=== PATIENT | female | born 1960 | race Caucasian/White ===

== ENCOUNTER 2019-04-27 22:28 | Emergency (ER) | payer OTHER ==
--- OUTSIDE RECORDS SUMMARY | 2019-04-27 22:31 | XMS REPORT | Continuity of Care Document ---
:1960 Author Organization [facility] Address [address] [place] [address] Phone Unavailable Care Team Providers Name Role Phone PHYSICIAN, NO Primary Care Physician Unavailable Insurance Providers Guarantor Kvng Rodriges Address [address] [place] [address] Email NA Payer [facility] Other Policy Number [id number] Subscriber's Name Kvng Rodriges Relationship Self / Same As Patient Group Number NA Group Name NA Advance Directives Directive Response Recorded Date/Time Name of Surrogate/Decision Maker NA 12/15/18 4:06pm Patient/Family Given Education Material R/T Directives? Y - VV 12/15/18 4: 06pm Chief Complaint and Reason for Visit Chief Complaint Trauma Reason for Visit Head injury Neck pain Sacral back pain Fall Problems Active ProblemsNo active problem information available. Past Problems Medical Problem Onset Date Status Fall Unknown Acute Head injury Unknown Acute Neck pain Unknown Acute Sacral back pain Unknown Acute Medications Current Home Medications Medication Dose Units Route Directions Days Qty Instructions Start Date Baclofen 1 Tab ORAL Three Times A 5 Days 15 Tablet 12/15/18 (Lioresal*) 10 Day for Mg Tab Unknown Social History Smoking Status Start Date Stop Date Current some day smoker Hospital Discharge Instructions No hospital discharge instruction information available. Plan of Care Discharge Date 12/15/18 4:00pm Instructions/Education Provided Head Injury, Adult, [id number] Low Back Strain Fall Prevention in the Home Forms Provided Portal Welcome Letter Prescriptions See Medication Section Referrals NO PHYSICIAN Additional Instructions/Education CONTINUE WITH HOME MEDICATIONS PRESCRIBED BACLOFEN 10MG TAB 1 BY MOUTH TID #15. FOLLOW UP WITH YOUR PRIMARY CARE PROVIDER IN 2-3 DAYS RETURN TO THE ER IF YOUR SYMPTOMS WORSEN Functional Status No functional status information available. Allergies, Adverse Reactions, Alerts Allergen Type Severity Reaction Status Last Updated Codeine ([id number]) Allergy Unknown HIVES Active 12/15/18 Morphine ([id number]) Allergy Unknown RASH Active 12/15/18 Gabapentin ([id number]) Allergy Unknown PASSES OUT Active 12/15/18 Sulfa Antibiotics ([id number]) Allergy Unknown THROAT SWELLS Active 12/15 Immunizations No immunization information available. Vital Signs Acute Vital Signs Vital Response Date/Time Blood Pressure 144/68 mm Hg 12/15/2018 5:56pm Pulse Pulse Rate (adult) 75 beats per minute (60 - 100) 12/15/2018 5:56pm Respiratory Rate 16 breaths per minute (10 - 24) 12/15/2018 5:56pm Temperature Source Oral 12/15/2018 3:21pm Height 5 ft 6 in 12/15/2018 1:24pm Weight 230 lb 12/15/2018 1:24pm Body Mass Index 37.1 kg/m^2 12/15/2018 1:24pm Results No relevant diagnostic test, laboratory data and/or discharge summary information available. Procedures Procedure Status Date Provider(s) Computed tomography of head without contrast Completed 12/15/18 JACKIE GARIBAY MD Computed tomography of cervical spine without Completed 12/15/18 [facility] DENTIST contrast X-ray of lumbar spine, AP and lateral views Completed 12/15/18 GRANT SHETH ENDODONTICS DENTIST X-ray of sacrum and coccyx, two or more views Completed 12/15/18 GRANT SHETH NP Encounters Encounter Location Arrival/Admit Date Discharge/Depart Date Attending Provider Departed [place] 12/15/18 1:23pm 12/15/18 4:00pm JACKIE GARIBAY MD Emergency Room [facility] Recent Diagnosis
--- OUTSIDE RECORDS SUMMARY | 2019-04-27 22:31 | XMS REPORT | Clinical Summary ---
:1960 Author Organization [facility] Address [address] [place] [address] Care Team Providers Name Role Phone Hannah Phoenix MD Primary Care Provider Allergies Active Allergy Reactions Severity Noted Date Comments Codeine Hives 04/17/2017 Gabapentin Other (See Comments) 04/17/2017 Passes out Morphine Swelling 04/17/2017 Sulfa (Sulfonamide Antibiotics) Anaphylaxis High 04/15/2016 Sulfur Swelling 04/17/2017 Medications Medication Sig Dispensed Refills Start Date End Date Status ACCU-CHEK COMPACT USE 1 STRIP 3 2 02/18/2017 Active TEST strip TIMES A DAY busPIRone (BUSPAR) 10 TAKE 1/2 TAB BY 0 10/10/2018 Active MG tablet MOUTH TWICE A DAY, IF TOLERATING INCREASE TO 1 BY MOUTH TWICE A DAY AFTER 1-2 WEEKS clonAZEPAM (KlonoPIN) TAKE 1 TABLET 0 10/09/2018 Active 1 MG tablet TWICE A DAY NEEDED ANXIETY/PANIC promethazine 0 10/31/2018 Active (PHENERGAN) 25 MG tablet levocetirizine Take 5 mg by 5 10/10/2018 Active (XYZAL) 5 MG tablet mouth daily. VICTOZA 3-MG 0.6 INJECT 1.8 MG 5 09/19/2018 Active mg/0.1 mL (18 mg/3 SUB-Q DAILY mL) pen injector metFORMIN Take 1,000 mg by 5 10/12/2018 Active (GLUCOPHAGE) 1,000 mg mouth 2 (two) tablet times a day. rizatriptan (MAXALT) TAKE 1 TABLET BY 5 10/11/2018 Active 10 MG tablet MOUTH AT ON SET OF HEADACHE MAY REPEAT AFTER 2 HOURS MAX 2 TABLETS IN 24 HOURS. rOPINIRole (REQUIP) 4 Take 4 mg by 0 09/29/2018 Active MG tablet mouth 2 (two) times a day. acyclovir (ZOVIRAX) 0 10/31/2018 Active 800 MG tablet PROAIR HFA 90 INHALE 2 PUFFS 2 09/15/2018 Active mcg/actuation inhaler BY MOUTH THREE TIMES DAILY LANTUS SOLOSTAR U-100 INJECT 50 UNITS 0 08/28/2018 Active INSULIN 100 unit/mL SUB-Q IN THE injection (pen) MORNING AND 20 UNITS AT BEDTIME DIRECTED montelukast Take 10 mg by 5 10/12/2018 Active (SINGULAIR) 10 mg mouth daily. tablet gemfibrozil (LOPID) 0 10/31/2018 Active 600 MG tablet furosemide (LASIX) 40 Take 40 mg by 5 10/12/2018 Active mg tablet mouth daily. buPROPion XL GIVE 3 TABLETS 0 08/30/2018 Active (WELLBUTRIN XL) 150 BY MOUTH EVERY MG 24 hr tablet MORNING ibuprofen Take 800 mg by 5 10/12/2018 Active (ADVIL,MOTRIN) 800 MG mouth 2 (two) tablet times a day. oxyCODone-acetaminoph TAKE 1 TABLET BY 0 10/13/2018 Active en (PERCOCET) 10-325 MOUTH SIX TIMES mg per tablet DAILY EVZIO 2 mg/0.4 mL 2 07/29/2018 Active auto-injector clopidogrel (PLAVIX) 0 10/31/2018 Active 75 mg tablet omeprazole (PriLOSEC) Take 40 mg by 0 09/17/2018 Active 40 MG capsule mouth daily. sertraline (ZOLOFT) TAKE 1 TABLET IN 0 09/28/2018 Active 50 MG tablet THE MORNING AND AT BEDTIME baclofen (LIORESAL) 0 10/31/2018 Active 20 MG tablet fluticasone-salmetero Inhale 1 puff 2 60 each 2 11/02/2018 12/02/2018 l (ADVAIR DISKUS) (two) times a 250-50 mcg/dose day for 30 days. DISKUS predniSONE Take 3 tablets 9 tablet 0 11/03/2018 11/06/2018 (DELTASONE) 20 mg (60 mg total) by tablet mouth daily for 3 days. azithromycin Take first 2 6 tablet 0 11/02/2018 11/06/2018 (ZITHROMAX) 250 MG tablets tablet together, then 1 every day until finished. benzonatate Take 1 capsule 21 capsule 0 01/25/2019 02/01/2019 (TESSALON) 100 MG (100 mg total) capsule by mouth 3 (three) times a day as needed for cough for up to 7 days. albuterol (PROAIR Inhale 2 puffs 1 Inhaler 0 01/25/2019 02/24/2019 HFA,PROVENTIL every 6 (six) HFA,VENTOLIN HFA) 90 hours as needed mcg/actuation inhaler for wheezing or shortness of breath for up to 30 days. Active Problems Not on file Encounters Date Type Specialty Care Team Description 03/05/2019 Emergency Emergency Medicine Dileep Hooper Bursitis of right MD Donnell elbow, unspecified bursa (Primary Dx) 02/12/2019 Emergency Emergency Medicine Julieth Gonzalez Chest heaviness Devi Jacobo MD (Primary Dx) 01/25/2019 Emergency Emergency Medicine Bulmaro Arguello Acute bronchitisDawson MD unspecified organism (Primary Dx) 11/02/2018 Emergency Emergency Medicine Julien Ivy MD COPD exacerbation (HCC) (Primary Dx) 11/02/2018 Travel after 04/26/2018 Social History Tobacco Use Types Packs/Day Years Used Date Former Smoker 1 Quit: 10/26/2018 Smokeless Tobacco: Never Used Alcohol Use Drinks/Week oz/Week Comments Yes occassional Sex Assigned at Date Recorded Not on file Job Start Date Occupation Industry Not on file Not on file Not on file Travel History Travel Start Travel End No recent travel history available. Last Filed Vital Signs Vital Sign Reading Time Taken Blood Pressure 135/71 03/05/2019 4:39 PM CDT Pulse 78 03/05/2019 4:39 PM CDT Temperature 36.4 C (97.6 F) 03/05/2019 4:39 PM CDT Respiratory Rate 18 03/05/2019 4:39 PM CDT Oxygen Saturation 97% 03/05/2019 4:39 PM CDT Inhaled Oxygen Concentration - - Weight 101 kg (223 lb) 03/05/2019 1:40 PM CDT Height 168.9 cm (5' 6.5") 02/12/2019 4:48 PM CDT Body Mass Index 35.45 02/12/2019 4:48 PM CDT Plan of Treatment Health Maintenance Due Date Last Done Comments BREAST CANCER SCREENING 2011 COLONOSCOPY SCREENING 2011 SHINGLES VACCINES (#1) 2011 INFLUENZA VACCINE 05/24/2019 Procedures Procedure Name Priority Date/Time Associated Comments Diagnosis XR ELBOW 2 VW RIGHT STAT 03/05/2019 4:15 Results for this PM CDT procedure are in the results section. TROPONIN Timed 02/12/2019 8:10 Results for this PM CDT procedure are in the results section. US DUPLEX VENOUS LOWER STAT 02/12/2019 8:09 Results for this EXTREMITY LEFT PM CDT procedure are in the results section. CT HEAD WO CONTRAST STAT 02/12/2019 7:28 Results for this PM CDT procedure are in the results section. XR CHEST 2 VW STAT 02/12/2019 7:25 Results for this PM CDT procedure are in the results section. ECG ED PRELIMINARY Routine 02/12/2019 6:55 Results for this INTERPRETATION PM CDT procedure are in the results section. ESTIMATED GFR STAT 02/12/2019 5:15 Results for this PM CDT procedure are in the results section. B NATRIURETIC PEPTIDE STAT 02/12/2019 5:15 Results for this PM CDT procedure are in the results section. TROPONIN STAT 02/12/2019 5:15 Results for this PM CDT procedure are in the results section. COMPREHENSIVE METABOLIC STAT 02/12/2019 5:15 Results for this PANEL PM CDT procedure are in the results section. HC COMPLETE BLD COUNT STAT 02/12/2019 5:15 Results for this W/AUTO DIFF PM CDT procedure are in the results section. ECG 12-LEAD STAT 02/12/2019 4:55 Results for this PM CDT procedure are in the results section. RESPIRATORY PATHOGEN Routine 01/25/2019 7:08 Results for this PANEL PM CDT procedure are in the results section. INFLUENZA ANTIGEN TEST, Routine 01/25/2019 7:08 Results for this REFLEX NEGATIVE TO RPP PM CDT procedure are in the results section. ECG 12-LEAD STAT 01/25/2019 6:58 Results for this PM CDT procedure are in the results section. TROPONIN Timed 01/25/2019 5:33 Results for this PM CDT procedure are in the results section. B NATRIURETIC PEPTIDE STAT 01/25/2019 5:33 Results for this PM CDT procedure are in the results section. ESTIMATED GFR STAT 01/25/2019 5:33 Results for this PM CDT procedure are in the results section. COMPREHENSIVE METABOLIC STAT 01/25/2019 5:33 Results for this PANEL PM CDT procedure are in the results section. HC COMPLETE BLD COUNT STAT 01/25/2019 5:33 Results for this W/AUTO DIFF PM CDT procedure are in the results section. XR CHEST 2 VW STAT 01/25/2019 5:20 Results for this PM CDT procedure are in the results section. XR CHEST 2 VW STAT 11/02/2018 9:07 Results for this PM [employer] procedure are in the results section. STREP SCREEN CULTURE Routine 11/02/2018 8:20 Results for this PM [employer] procedure are in the results section. GROUP A STREP, RAPID Routine 11/02/2018 8:20 Results for this ANTIGEN PM [employer] procedure are in the results section. INFLUENZA ANTIGEN Routine 11/02/2018 8:20 Results for this PM [employer] procedure are in the results section. after 04/26/2018 Results XR Elbow 2 Vw Right (03/05/2019 4:15 PM CDT) Specimen Narrative Performed At EXAMINATION:XR ELBOW 2 VW RIGHT [facility] CLINICAL HISTORY:elbow pain COMPARISON:None. IMPRESSION: There is no evidence of acute right elbow fracture, dislocation, or joint effusion. Bursitis involving the olecranon bursa is suggested. [id number] Procedure Note Hm Interface, Radiology Results Incoming - 03/05/2019 4:20 PM CDT EXAMINATION: XR ELBOW 2 VW RIGHT CLINICAL HISTORY: elbow pain COMPARISON: None. IMPRESSION: There is no evidence of acute right elbow fracture, dislocation, or joint effusion. Bursitis involving the olecranon bursa is suggested. [id number] Performing Organization Address City/State/Zipcode Phone Number [facility] [address] [place] [address] Troponin (02/12/2019 8:10 PM CDT)Only the most recent of3 resultswithin the time period is included. Troponin <0.30 0.00 - 0.30 [facility] Comment: ng/mL OSWALD VAHE 0.11 - 1.49 ng/mlMay indicate increased risk of acute HOSPITAL coronary syndrome. >=1.5 ng/mlConsistent with acute myocardial infarction. The diagnostic value of a single normal or non-diagnostic result is questionable.Serial samples at 2-6 hour intervals are required to rule out acute myocardial injury. Specimen Plasma specimen Performing Organization Address City/State/Zipcode Phone Number [facility] [place] DEPARTMENT OF PATHOLOGY AND [address] [place] [address] GENOMIC MEDICINE [facility] [address] [place] [address] Us duplex venous lower extremity (02/12/2019 8:09 PM CDT) Specimen Narrative Performed At EXAMINATION:US DUPLEX VENOUS LOWER EXTREMITY LEFT [facility] CLINICAL HISTORY:LE swelling COMPARISON:None. TECHNIQUE:Grayscale, color Doppler, and spectral waveform analysis of the left lower extremity deep venous system was performed. The common femoral, superficial femoral, proximal deep femoral, greater saphenous, and popliteal veins were evaluated. The calf veins and contralateral right common femoral vein were also evaluated. FINDINGS: The left common femoral, superficial femoral, and popliteal veins are compressible. They demonstrate normal venous waveforms and response to augmentation. There is flow in the visualized calf veins. There is no evidence of a popliteal or Gallego's cyst. The contralateral right common femoral vein is patent. IMPRESSION: No evidence of deep venous thrombosis in visualized veins of the left lower extremity. [id number] Procedure Note Interface, Radiology Results Incoming - 02/12/2019 8:13 PM CDT EXAMINATION: US DUPLEX VENOUS LOWER EXTREMITY LEFT CLINICAL HISTORY: LE swelling COMPARISON: None. TECHNIQUE: Grayscale, color Doppler, and spectral waveform analysis of the left lower extremity deep venous system was performed. The common femoral, superficial femoral, proximal deep femoral, greater saphenous, and popliteal veins were evaluated. The calf veins and contralateral right common femoral vein were also evaluated. FINDINGS: The left common femoral, superficial femoral, and popliteal veins are compressible. They demonstrate normal venous waveforms and response to augmentation. There is flow in the visualized calf veins. There is no evidence of a popliteal or Gallego's cyst. The contralateral right common femoral vein is patent. IMPRESSION: No evidence of deep venous thrombosis in visualized veins of the left lower extremity. [id number] Performing Organization Address City/State/Zipcode Phone Number [facility] [address] [place] [address] CT Head Wo Contrast (02/12/2019 7:28 PM CDT) Specimen Narrative Performed At Procedure:CT HEAD WO CONTRAST [facility] REFERRING PHYSICIAN:JULIETH GONZALEZ HISTORY:syncopeslurred speech (resolved.) COMPARISON: None TECHNIQUE: Axial images were obtained of the head without intravenous contrast. All CT scan performed using radiation dose reduction techniques. Technical factors are evaluated and adjusted to ensure appropriate moderation of exposure. Automated dose management technology is applied to adjust the radiation dose to minimize expose whileachieving a diagnostic quality image. FINDINGS: Koehler-white matter differentiation is maintained. The ventricular system is symmetric and midline. Mild chronic ischemic small vessel white matter disease is seen. There is no evidence of acute hemorrhage. Nointra-axial or extra-axial lesion is seen. The visualized portion of the orbits, paranasal sinuses and mastoid air cells are unremarkable. The calvarium is intact. Scattered atherosclerotic calcifications of the intracranial vessel are noted. IMPRESSION: No CT evidence of acute intracranial abnormality or hemorrhage. [id number] Procedure Note Interface, Radiology Results Incoming - 02/12/2019 7:33 PM CDT Procedure:CT HEAD WO CONTRAST REFERRING PHYSICIAN:JULIETH GONZALEZ HISTORY: syncope slurred speech (resolved.) COMPARISON: None TECHNIQUE: Axial images were obtained of the head without intravenous contrast. All CT scan performed using radiation dose reduction techniques. Technical factors are evaluated and adjusted to ensure appropriate moderation of exposure. Automated dose management technology is applied to adjust the radiation dose to minimize expose while achieving a diagnostic quality image. FINDINGS: Koehler-white matter differentiation is maintained. The ventricular system is symmetric and midline. Mild chronic ischemic small vessel white matter disease is seen. There is no evidence of acute hemorrhage. No intra-axial or extra-axial lesion is seen. The visualized portion of the orbits, paranasal sinuses and mastoid air cells are unremarkable. The calvarium is intact. Scattered atherosclerotic calcifications of the intracranial vessel are noted. IMPRESSION: No CT evidence of acute intracranial abnormality or hemorrhage. [id number] Performing Organization Address City/State/Zipcode Phone Number [facility] [address] [place] [address] XR Chest 2 Vw (02/12/2019 7:25 PM CDT)Only the most recent of3 resultswithin the time period is included. Specimen Narrative Performed At EXAMINATION:XR CHEST 2 VW HM [facility] CLINICAL HISTORY:chest pain COMPARISON:01/25/2019. FINDINGS: Two views of the chest demonstrate normal cardiomediastinal silhouette. Pulmonary vasculature is within normal limits. Both lungs are clear. No pleural disease is identified. Regional osseous structures is unremarkable. IMPRESSION: No radiographic evidence of acute cardiopulmonary process or active disease of the chest. [id number] Procedure Note Hm Interface, Radiology Results Incoming - 02/12/2019 7:32 PM CDT EXAMINATION: XR CHEST 2 VW CLINICAL HISTORY: chest pain COMPARISON: 01/25/2019. FINDINGS: Two views of the chest demonstrate normal cardiomediastinal silhouette. Pulmonary vasculature is within normal limits. Both lungs are clear. No pleural disease is identified. Regional osseous structures is unremarkable. IMPRESSION: No radiographic evidence of acute cardiopulmonary process or active disease of the chest. [id number] Performing Organization Address City/State/Zipcode Phone Number [facility] [address] [place] [address] ECG ED Preliminary Interpretation - Not an Order (02/12/2019 6:55 PM CDT) Narrative Performed At Julieth Gonzalez Jr., MD 02/13/20194:41 AM ECG ED Preliminary Interpretation - Not an Order Performed by: Julieth Gonzalez Jr., MD Authorized by: Julieth Gonzalez Jr., MD ECG reviewed by ED Physician in the absence of a interior design assistant: yes Interpretation: Interpretation: normal Rate: ECG rate:93 ECG rate assessment: normal Rhythm: Rhythm: sinus rhythm Ectopy: Ectopy: none QRS: QRS axis:Normal QRS intervals:Normal Conduction: Conduction: normal ST segments: ST segments:Normal T waves: T waves: normal Estimated GFR (02/12/2019 5:15 PM CDT)Only the most recent of2 resultswithin the time period is included. Estimated GFR >=90 mL/min/1.73 [facility] Comment: m2 [facility] G1 >=90 Normal or high G2 60-89Mildly decreased [id number] to moderately decreased [id number] to severely decreased G4 15-29Severely decreased G5 <15Kidney failure The eGFR was calculated using the Chronic Kidney Disease Epidemiology Collaboration (CKD-EPI) equation. Interpretation is based on recommendations of the National Kidney Foundation-Kidney Disease Outcomes Quality Initiative (NKF-KDOQI) published in 2014. Specimen Plasma specimen Performing Organization Address City/State/Zipcode Phone Number [facility] DEPARTMENT OF PATHOLOGY AND [address] [place] [address] GENOMIC MEDICINE [facility] [address] [place] [address] CBC with platelet and differential (02/12/2019 5:15 PM CDT)Only the most recent of2 resultswithin the time period is included. WBC 7.6 4.2 - 11.0 k/uL [facility] RBC 4.70 4.04 - 5.86 [facility] m/uL [facility] HGB 12.6 11.5 - 15.3 [facility] g/dL [facility] HCT 41.0 34.0 - 45.0 % [facility] MCV 87.2 80.0 - 98.0 fL [facility] MCH 26.8 (L) 27.0 - 34.0 pg [facility] MCHC 30.7 (L) 31.5 - 36.5 [facility] g/dL [facility] RDW - SD 47.8 37.0 - 51.0 fL [facility] MPV 9.8 7.4 - 10.4 fL [facility] Platelet count 298 150 - 400 k/uL [facility] Nucleated RBC 0.00 /100 WBC [facility] Neutrophils 63.4 36.0 - 66.0 % [facility] Lymphocytes 28.5 24.0 - 44.0 % [facility] Monocytes 5.1 0.0 - 6.0 % [facility] Eosinophils 2.4 0.0 - 6.0 % [facility] Basophils 0.5 0.0 - 1.2 % [facility] Immature granulocytes 0.1 0.0 - 1.0 % [facility] Specimen Blood Performing Organization Address City/State/Zipcode Phone Number [facility] [place] DEPARTMENT OF PATHOLOGY AND [address] [place], [place] [phone] [place] [address] [address] [place] [address] B natriuretic peptide (02/12/2019 5:15 PM CDT)Only the most recent of2 resultswithin the time period is included. [facility] BNP 45 0 - 100 pg/mL [facility] Specimen Blood Performing Organization Address City/[facility]/Zipcode Phone Number [facility] DEPARTMENT OF PATHOLOGY AND [address] [place], [place] [id number] [place] [address] [address] [place] [address] Comprehensive metabolic panel (02/12/2019 5:15 PM CDT)Only the most recent of2 resultswithin the time period is included. [facility] Sodium 140 135 - 150 mEq/L [facility] Potassium 4.3 3.5 - 5.0 mEq/L [facility] Chloride 96 (L) 98 - 112 mEq/L [facility] CO2 29 24 - 31 mmol/L [facility] Anion gap 15@ANIO 7 - 15 mEq/L [facility] BUN 17 7 - 18 mg/dL [facility] Creatinine 0.60 0.50 - 0.90 [facility] mg/dL [facility] Glucose 195 (H) 65 - 100 mg/dL [facility] Calcium 10.1 8.3 - 10.2 mg/dL [facility] Protein 7.6 6.3 - 8.3 g/dL [facility] Albumin 3.4 (L) 3.5 - 5.0 g/dL [facility] A/G ratio 0.8 0.7 - 3.8 [facility] Alkaline phosphatase 112 (H) 0 - 104 U/L [facility] AST 13 10 - 35 U/L [facility] ALT 10 5 - 50 U/L [facility] Total bilirubin <0.3 0.2 - 1.2 mg/dL [facility] Specimen Plasma specimen Performing Organization Address City/State/[facility] Phone Number [facility] DEPARTMENT OF PATHOLOGY AND [address] [place] [address] GENOMIC MEDICINE [facility] [address] [facility] [place] [address] ECG 12 lead (02/12/2019 4:55 PM CDT)Only the most recent of2 resultswithin the time period is included. Ventricular rate 93 [facility] Atrial rate 93 [facility] VT interval 146 [facility] QRSD interval 86 [facility] QT interval 382 [facility] QTC interval 474 [facility] P axis 1 33 [facility] QRS axis 1 46 [facility] T wave axis 18 [facility] EKG impression Normal sinus rhythm-Low [facility] voltage QRS-Borderline ECG-In automated comparison with ECG of 25-JAN-2019 18:58,-Nonspecific T wave abnormality now evident in Inferior leads- Specimen Narrative Performed At Performing Organization Address City/[facility]/Zipcode Phone Number [facility] [address] [place] [address] Respiratory pathogen panel (01/25/2019 7:08 PM CDT) Respiratory Positive for Rhinovirus/Enterovirus [facility] pathogen panel [facility] Negative for all other pathogens tested: HOSPITAL Negative for Adenovirus Negative for Coronavirus HKU1 Negative for Coronavirus NL63 Negative for Coronavirus 229E Negative for Coronavirus OC43 Negative for Human Metapneumovirus Negative for Influenza A Negative for Influenza A/H1 Negative for Influenza A/H3 Negative for Influenza A/H1-2009 Negative for Influenza B Negative for Parainfluenza Virus 1 Negative for Parainfluenza Virus 2 Negative for Parainfluenza Virus 3 Negative for Parainfluenza Virus 4 Negative for Respiratory Syncytial Virus Negative for Bordetella pertussis Negative for Chlamydophila pneumoniae Negative for Mycoplasma pneumoniae This real-time PCR assay detects the presence of nucleic acids (RNA or DNA) for the respiratory pathogens listed. A result of "Not-detected" does not exclude the possibility of the presence of one or more pathogens at concentrations less than the detectable limits of the assa (A) Comment: Specimen Information Specimen Source: Nares Specimen Site: Right Specimen Nares - Right Performing Organization Address City/[facility]/Zipcode Phone Number [place] DEPARTMENT OF PATHOLOGY AND [address] [place] [address] [facility] [address] [place] [address] Influenza antigen test, reflex negative to RPP (01/25/2019 7:08 PM CDT) Influenza antigen Negative for Influenza A/B antigen. [facility] Comment: [facility] Specimen Source: Nares Specimen Site: Right Specimen Nares - Right Performing Organization Address [facility] Phone Number [facility] DEPARTMENT OF PATHOLOGY AND [address] [place] [address] [facility] [address] [place] [address] Group A strep, rapid antigen (11/02/2018 8:20 PM [employer]) Group A strep, Negative for Group A Streptococcus antigen. [facility] rapid antigen Comment: [facility] Specimen Information [facility] Specimen Source: Throat Specimen Site: Not otherwise specified Specimen Throat - Not otherwise specified Performing Organization Address City/[facility] Phone Number DEPARTMENT OF PATHOLOGY AND [address] [place] [address] [facility] [address] Influenza antigen (11/02/2018 8:20 PM [employer]) Influenza antigen Negative for Influenza A/B antigen. [facility] Comment: [facility] Specimen Information [facility] Specimen Source: Nares Specimen Site: Right Specimen Nares - Right Performing Organization Address City/[facility]/Zipcode Phone Number DEPARTMENT OF PATHOLOGY AND [address] [place] [address] [facility] [address] Strep screen culture (11/02/2018 8:20 PM BR[employer] FIN[employer]ER) Strep screen No beta hemolytic Streptococci isolated [facility] culture isolate Comment: HOSPITAL Specimen Information Specimen Source: Throat Specimen Site: Not otherwise specified Specimen Throat - Not otherwise specified Performing Organization Address City/State/Zipcode Phone Number [place] DEPARTMENT OF PATHOLOGY AND [address] [place] [address] GENOMIC MEDICINE [address] [address] after 04/26/2018 Advance Directives Patient has advance care planning documents on file. For more information, please contact:[address] [address]
--- OUTSIDE RECORDS SUMMARY | 2019-04-27 22:31 | XMS REPORT | Continuity of Care Document ---
:1960 Author Organization [facility] Information Ramer Care Team Providers Name Role Phone [facility] Unavailable Unavailable Problems Problem Status Onset Classification Date Comments Source Date Reported Fall Resolved Problem 12/15/2018 [facility] Head injury Resolved Problem 12/15/2018 [facility] Neck pain Resolved Problem 12/15/2018 [facility] Sacral back Resolved Problem 12/15/2018 [facility] Medications Medication Details Route Status Patient Ordering Order Source Instructions Provider Date Baclofen Three ORAL Active Brown 12/15/19 [facility] (Lioresal*) Times A 19 [facility] 10 Mg Tab Day for Medical [facility] Allergies, Adverse Reactions, Alerts Substance Category Reaction Severity Reaction Status Date Comments Source type Reported Codeine HIVES Unknown Allergy to Active [facility] ([id number]) [address] Morphine RASH Unknown Allergy to Active [facility] ([id number]) [address] Gabapentin PASSES Unknown Allergy to Active [facility] ([id number]) OUT [address] Sulfa THROAT Unknown Allergy to Active [facility] Antibiotics SWELLS [address] ([id number]) [facility] Immunizations No Data Provided for This Section Results No Data Provided for This Section Pathology Reports No Data Provided for This Section Diagnostic Reports No Data Provided for This Section Consultation Notes No Data Provided for This Section Discharge Summaries No Data Provided for This Section History and Physicals No Data Provided for This Section Vital Signs No Data Provided for This Section Encounters Location Location Encounter Encounter Reason Attending ADM DC Status Source Details Type Number For Provider Date Date Visit Departed [id number] TOKS OWO 12/15 12/15 [facility] MD /2018 [facility] Room [facility] Procedures Procedure Code Date Perfomer Comments Source Computed [id number] O[facility] tomography of 9 [facility] head without Medical Center contrast [facility]ed [id number] [facility] cervical spine [facility] without contrast X-ray of lumbar [id number] [facility] spine, AP and 9 [facility] lateral [facility] sacrum [id number] [facility] and coccyx, two 9 [facility] or more views Medical [place] Assessment and Plan No Data Provided for This Section Plan of Care Plan of Care Date Source Discharge Date 12/15/18 4:00pm 12/15/2018 [facility] Instructions/Education Provided Head Injury, Adult, [facility] Low Back Strain Fall Prevention in the Home Forms Provided Portal Welcome Letter Prescriptions See Medication Section Referrals NO PHYSICIAN Additional Instructions/Education CONTINUE WITH HOME MEDICATIONS PRESCRIBED BACLOFEN 10MG TAB 1 BY MOUTH TID #15. FOLLOW UP WITH YOUR PRIMARY CARE PROVIDER IN 2-3 DAYS RETURN TO THE ER IF YOUR SYMPTOMS WORSEN Social History Social History Date Source Smoking Status Start Date Stop Date 12/15/2018 [facility] Current some day smoker Center Family History No Data Provided for This Section Advance Directives Order Name Results Value Date Source Advance Directives Advance Directives Directive Response Recorded Date/ Time 12/15/2018 [facility] Name of Surrogate/Decision Maker [facility] 12/15/18 4:06pm Patient/Family Given Education Material R/T Directives? Y - VV 12/15/18 4:06pm Functional Status No Data Provided for This Section
--- OUTSIDE RECORDS SUMMARY | 2019-04-27 22:31 | XMS REPORT ---
:1960 Author Organization [facility] Behavior[facility] Health Address [address] [place] [id number] Phone Allergies, Adverse Reactions, Alerts Allergy Name Reaction Description Start Date Severity Status Provider GABAPENTIN passed out/syncope multiple Severe Active Wellington Ibrahim MD times with it CODEINE hives Moderate Active Wellington Ibrahim MD MORPHINE hives Severe Active [place] Ibrahim MD SULFA rash and throat closing up Severe Active [place] Ibrahim MD Conditions or Problems Problem Name Problem Onset Status Entry Provider Comment Standard Annotate Code Date Date Description Lack of V60.0 Active Iza Lack of housing housing / [facility] Lack of V60.0 Active Iza Lack of housing housing / [facility] Peripheral 356.9 Active Wellington Unspecified neuropathy / Patrice hereditary and idiopathic peripheral neuropathy AGORAPHOBIA Active Wellington Agoraphobia / Patrice without mention MD of panic attacks Degenerative 722.6 Active Wellington Degeneration of disc disease / Patrice intervertebral disc, site unspecified Diabetes 250.00 Active Wellington Diabetes mellitus, type / Patrice mellitus 2 without mention of complication, type II or unspecified type, not stated as uncontrolled Fibromyalgia 729.1 Active Wellington Myalgia and / Patrice myositisMD unspecified GERD 530.81 Active Wellington Esophageal / Patrice reflux LOW INCOME Active Wellington Inadequate / Patrice material resources Migraine 346.90 Active Wellington Migraine, / Patrice unspecified, without mention of intractable migraine, without mention of status migrainosus Obstructive 327.23 Active Wellington Obstructive sleep apnea / Patrice sleep apnea (adult) (pediatric) PANIC DISORDER Active Wellington Panic disorder / Patrice without MD agoraphobia PERSISTENT Active Wellington DEPRESSIVE / Patrice DISORDER, EARLY ONSET, SEVERE PTSD Active Wellington Posttraumatic / Patrice stress disorder TOBACCO USE Active Wellington Tobacco use DISORDER, / Patrice disorder SEVERE MD Medication List Medication Instructions Start Stop Generic NDC Status Provider Patient Date Date Name Instruction NICOTINE 21mg patch NICOTINE 62419170544 Active Wellington Active 21-14-7 to skin Patrice MG/24HR daily for 6 MD TRANSDERMAL weeks, then KIT 14mg patch to skin daily for 2 weeks, then 7mg patch to skin daily for 2 weeks BUPROPION HCL GIVE 3 BUPROPION 47724900894 Active Wellington Active XL 150 MG TABLETS BY HCL Patrice TABLET MOUTH EVERY MD MORNING BUSPIRONE HCL 1 By Mouth BUSPIRONE 19029374886 Active Wellington Active 10 MG TABLET Twice a Day HCL Patrice SERTRALINE HCL TAKE 1 SERTRALINE 40527016050 Active Wellington Active 50 MG TABLET TABLET IN HCL Patrice THE MORNING MD AND AT BEDTIME BACLOFEN 10 MG one tablet BACLOFEN 46363053249 Active Wellington Active ORAL TABLET by BID Patrice SCHEDULED MD for muscle spasm CLOPIDOGREL 1 By Mouth CLOPIDOGREL 56103593077 Active Wellington Active BISULFATE 75 once a day BISULFATE Patrice MG ORAL TABLET FUROSEMIDE 40 1 by mouth FUROSEMIDE 94419997081 Active Wellington Active MG ORAL TABLET every am Patrice MD GEMFIBROZIL 1 By Mouth GEMFIBROZIL 38090430861 Active Wellington Active 600 MG ORAL Twice a Day Patrice TABLET IBUPROFEN 800 1 by mouth IBUPROFEN 81521038652 Active Wellington Active MG ORAL TABLET BID Patrice SCHEDULED LANTUS 100 50 AM and INSULIN 23838260656 Active Wellington Active UNIT/ML 20PM GLARGINE Patrice SUBCUTANEOUS MD SOLUTION MAXALT 5 MG RIZATRIPTAN 30673503970 Active Wellington Active ORAL TABLET BENZOATE Patrice MD METFORMIN HCL 1 by mouth METFORMIN 04482848504 Active Wellington Active 1000 MG ORAL twice a day HCL Patrice TABLET MONTELUKAST MONTELUKAST 89181911233 Active Wellington Active SODIUM 10 MG SODIUM Patrice ORAL TABLET MD OMEPRAZOLE 40 1 By Mouth OMEPRAZOLE 87262775855 Active Wellington Active MG ORAL Every Day Patrice CAPSULE MD DELAYED RELEASE PERCOCET 1 By Mouth OXYCODONE-AC 55987241779 Active Wellington Active 10-325 MG ORAL up to 6 ETAMINOPHEN Patrice TABLET times a day VICTOZA 18 AM LIRAGLUTIDE 54828066540 Active Wellington Active MG/3ML Patrice SUBCUTANEOUS MD SOLUTION PEN-INJECTOR CLONAZEPAM 1 TAKE 1 CLONAZEPAM 36537364007 Active Wellington Active MG TABS TABLET Patrice TWICE DAILY Vital Signs Date Name Value Unit Range Description blood pressure, diastolic 84 mm[Hg] BP wooten blood pressure, systolic 122 mm[Hg] BP sys height E&M 67 [in_us] Bdy height pulse rate E&M 88 /min Heart rate weight E&M 220.40 [lb_av] Weight Measured blood pressure, diastolic 74 mm[Hg] BP wooten blood pressure, systolic 126 mm[Hg] BP sys height E&M 67 [in_us] Bdy height pulse rate E&M 83 /min Heart rate weight E&M 235 [lb_av] Weight Measured blood pressure, diastolic 81 mm[Hg] BP wooten blood pressure, systolic 139 mm[Hg] BP sys height E&M 67 [in_us] Bdy height pulse rate E&M 88 /min Heart rate weight E&M 234.13 [lb_av] Weight Measured blood pressure, diastolic 68 mm[Hg] BP wooten blood pressure, systolic 111 mm[Hg] BP sys height E&M 67 [in_us] Bdy height pulse rate E&M 86 /min Heart rate weight E&M 231 [lb_av] Weight Measured Encounters Date Encounter Provider Code Facility Est Patient Detailed [place] Ibrahim MD [facility][id number] [facility] Behavior[facility] Health 12:10:39 T - [id number] Est Patient Detailed [place] Ibrahim MD [facility]-32189 [facility] Behavior[facility] Health 10:45:44 [employer] - [id number] Est Patient Detailed [place] Ibrahim MD [facility]63419 [facility] 10:23:06 T - 55544 Est Patient Detailed [place] Ibrahim MD [facility]-71998 [facility] 12:17:27 T - 70033 Est Patient Detailed [place] Ibrahim MD [facility]70760 [facility] 10:52:54 T - 43028 Est Patient Detailed [place] Ibrahim MD [facility]-28572 [facility] 11:11:24 [employer] - [id number] Est Patient Detailed [place] Ibrahim MD [facility]-99077 [facility] 11:39:24 [facility] - [id number] Procedures Code Procedure Name Date Entry Date Standard Description [id number] Diagnostic evaluation with medical - 66188 11:12:16 [employer]
--- OUTSIDE RECORDS SUMMARY | 2019-04-27 22:32 | XMS REPORT | Summary of Care ---
:1960 Author Name Shola Mcdonnell Josefa Address Unavailable Unavailable , Care Team Providers Name Role Phone MANUEL Gramajo, SAMANTHA Unavailable Unavailable CICI LANDAVERDE M.D. Unavailable Unavailable RENARD MICHELLE, SONIYA ROGERS Unavailable Unavailable JADEN MICHELLE KS, JOSEPH Veliz Unavailable Unavailable Samantha Pozo MD Unavailable Unavailable Unavailable Unavailable Unavailable Functional Status Name Dates Details Functional status health issues are not documented Status: Name Dates Details Cognitive status health issues are not documented Status: Problems Name Dates Details Diabetes mellitus type 2, uncontrolled (250.02, E11.65) Status: Active Hypertension associated with diabetes (250.80, E11.59) Status: Active Diabetic peripheral neuropathy (250.60, E11.42) Status: Active Dyslipidemia with low high density lipoprotein (HDL) cholesterol with hypertriglyceridemia due to type 2 diabetes mellitus (250.80, E11.69) Status : Active Obesity, Class II, BMI 35-39.9 (278.00, E66.9) Status: Active Osteoporosis (733.00, M81.0) Status: Active 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 Quantity: 30 Refills: 5 Start : 12-Jan-2017 Active Levocetirizine Dihydrochloride 5 MG Oral Tablet TAKE 1 TABLET DAILY. Refills: 0 Start : 12-Jan-2017 Active buPROPion HCl ER (XL) 300 MG Oral Tablet Extended Release 24 Hour TAKE 1 TABLET IN THE MORNING Refills: 0 Start : 12-Jan-2017 Active buPROPion HCl ER (XL) 150 MG Oral Tablet Extended Release 24 Hour Take 1 Tablet in the Evening Refills: 0 Start : 12-Jan-2017 Active Gemfibrozil 600 MG Oral Tablet TAKE 1 TABLET TWICE DAILY Quantity: 180 Refills: 0 Start : 12-Jan-2017 Active metFORMIN HCl - 1000 MG Oral Tablet TAKE 1 TABLET TWICE DAILY Quantity: 180 Refills: 0 Start : 12-Jan-2017 Active Ondansetron HCl - 4 MG Oral Tablet TAKE 1 TABLET TWICE DAILY Refills: 0 Start : 12-Jan-2017 Active rOPINIRole HCl - 4 MG Oral Tablet TAKE 1 TABLET TWICE DAILY Refills: 0 Start : 12-Jan-2017 Active Ibuprofen 800 MG Oral Tablet TAKE 1 TABLET TWICE DAILY Refills: 0 Start : 12-Jan-2017 Active Methocarbamol 750 MG Oral Tablet TAKE 1 TABLET 3 TIMES DAILY. Refills: 0 Start : 12-Jan-2017 Active Singulair 10 MG Oral Tablet TAKE 1 TABLET DAILY Refills: 0 Start : 12-Jan-2017 Active Clopidogrel Bisulfate 75 MG Oral Tablet TAKE 1 TABLET DAILY Refills: 0 Start : 12-Jan-2017 Active Lantus SoloStar 100 UNIT/ML Subcutaneous Solution Pen-injector INJECT 50 UNITS IN THE MORNING AND 20 UNITS IN THE EVENING Refills: 0 Start : 12-Jan-2017 Active Percocet 10-325 MG Oral Tablet TAKE 1 TABLET 6 TIMES DAILY Refills: 0 Start : 12-Jan-2017 Active KlonoPIN 1 MG Oral Tablet Take 1 tablet in the morning and 1.5 tablets in the evening Refills: 0 Start : 12-Jan-2017 Active Phendimetrazine Tartrate 35 MG Oral Tablet TAKE 1 TABLET TWICE DAILY Refills: 0 Start : 12-Jan-2017 Active SSD 1 % External Cream as needed Refills: 0 Start : 12-Jan-2017 Active Systane Ultra 0.4-0.3 % Ophthalmic Solution 1 drop in each eye twice daily Refills: 0 Start : 12-Jan-2017 Active Victoza 18 MG/3ML Subcutaneous Solution Pen-injector INJECT 1.8 UNIT Daily Quantity: 1 Refills: 0 SAMANTHA POZO M.D. Start : 12-Jan-2017 Active 3 x 3 ML Pen BD Ultra-Fine [employer] 31 guage use as directed for insulin pens Quantity: 90 Refills: 3 SAMANTHA POZO M.D. Start : 12-Jan-2017 Active Allergies and Adverse Reactions Name Dates Details Adhesive Bandages MISC (Allergy) Status: Active Codeine Derivatives (Allergy) Status: Active Gabapentin CAPS (Allergy) Status: Active Morphine Derivatives (Allergy) Status: Active Sulfa Drugs (Allergy) Status: Active Procedures Procedure Dates Details History of Section Completed History of Hysterectomy Completed Immunization Name Dates Details Immunizations not documented Family History Name Dates Details Family history of type 2 diabetes mellitus (V18.0, Z83.3) Status: Active Family history of hypertension (V17.49, Z82.49) Status: Active Family history of hyperlipidemia (V18.19, Z83.438) Status: Active Social History Name Dates Details - Status: Name Dates Details Former smoker Vital Signs Date Test Result Details No Known Vitals to report Results Date Description Value Details [id number] [U] XRAY ELBOW MIN 3 VWS RIGHT [id number] XR ELBOW MIN 3 VWS RIGHT Images acquired, not reported on this accession number. Plan of Care Name Dates Details Planned Observations Planned Goals not documented Planned Encounters Appointment; KHADAR EDGE M.D. On: 01-May-2019 14:30 Appointment; JOSEPH STANLEY M.D. On: 04-May-2019 10:30 Appointment; CHICHI MIDDLETON M.D. On: 17-May-2019 13:00 Interventions Provided Labs/Procedures/Imaging[U] XRAY ELBOW MIN 3 VWS RIGHT [id number]; Done: 20 Apr 2019 Instructions Name Dates Details Instructions not documented Encounters Appointment; CICI LANDAVERDE M.D. On: 12-Apr-2018 14:45 Encounter Diagnosis: Problem not documented Appointment; CICI LANDAVERDE M.D. On: 19-Apr-2018 11:00 Encounter Diagnosis: Problem not documented Appointment; CICI LANDAVERDE M.D. On: 21-Jun-2018 11:00 Encounter Diagnosis: Problem not documented Appointment; CICI LANDAVERDE M.D. On: 20-Apr-2019 13:45 Encounter Diagnosis: Problem not documented
[2019-04-27] MEDS ORDERED: FENTANYL CITR 100 MCG/2 ML ONE (23:55)
--- NOTE | 2019-04-28 02:04 | ER ---
Nurse's Notes [facility] Name: Latoya Rodriges Age: 58 yrs Sex: Female : 1960 Arrival Date: 04/27/2019 Time: 22:33 Bed 15 Private MD: Diagnosis: Low back pain-from fall;Headache-from fall;Neck pain from fall Presentation: 04/27 22:46 Presenting complaint: Patient states: she went to sit down in her recliner last night aa1 and didn't realize it wasn't behind her and she fell onto the floor landing on her buttocks and back. Reports she also hit the back of her head as well. Transition of care: patient was not received from another setting of care. Onset of symptoms was April 26, 2019. Risk Assessment: Do you want to hurt yourself or someone else? Patient reports no desire to harm self or others. Initial Sepsis Screen: Does the patient meet any 2 criteria? No. Patient's initial sepsis screen is negative. Does the patient have a suspected source of infection? No. Patient's initial sepsis screen is negative. Care prior to arrival: None. 22:46 Method Of Arrival: Ambulatory aa1 22:46 Acuity: NEENA 4 aa1 Triage Assessment: 23:00 General: Appears in no apparent distress. comfortable, Behavior is calm, cooperative, aa1 appropriate for age. Historical: - Allergies: 23:10 Codeine; aa1 23:10 Morphine; aa1 23:10 GABAPENTIN; aa1 23:10 Sulfa (Sulfonamide Antibiotics); aa1 - PMHx: 23:10 Diabetes - NIDDM; Fibromyalgia; Degenerative disc disease; PAD; RLS; neuropathy; Sleep aa1 Apnea; COPD; bursitis; - PSHx: 23:10 ; Hysterectomy; Hernia repair; ankle sx; aa1 - Immunization history:: Adult Immunizations up to date. - Social history:: Smoking status: Patient uses tobacco products, smokes one-half pack cigarettes per day. - Ebola Screening: : No symptoms or risks identified at this time. Screenin/06 00:12 Abuse screen: Denies threats or abuse. Denies injuries from another. Nutritional lp1 screening: No deficits noted. Tuberculosis screening: No symptoms or risk factors identified. Fall Risk None identified. Assessment: 04/27 23:15 General: Appears uncomfortable, Behavior is crying. Pain: Complains of pain in sacrum. lp1 Neuro: Level of Consciousness is awake, alert, obeys commands, Gait is steady, Intact. Cardiovascular: Patient's skin is warm and dry. Respiratory: Respiratory effort is even, unlabored. GI: No signs and/or symptoms were reported involving the gastrointestinal system. : No signs and/or symptoms were reported regarding the genitourinary system. EENT: No signs and/or symptoms were reported regarding the EENT system. Derm: Skin is pink, warm \T\ dry. Musculoskeletal: Circulation, motion, and sensation intact. 04/28 00:00 Reassessment: Patient appears in no apparent distress at this time. No changes from lp1 previously documented assessment. 00:51 Reassessment: Patient returned from CT at this time; States no pain relief from lp1 medication administered; Repositioned with some comfort at this time. 02:17 Reassessment: Patient is alert, oriented x 3, equal unlabored respirations, skin lp1 warm/dry/pink. Patient states continued pain to lower back on movement. Vital Signs: 04/27 23:00 BP 133 / 51; Pulse 93; Resp 20; Temp 98.2; Pulse Ox 98% on R/A; Weight 104.33 kg; aa1 Height 5 ft. 6 in. (167.64 cm); Pain 10/10; 04/28 00:00 BP 119 / 55; Pulse 94; Resp 18; Pulse Ox 97% on R/A; lp1 00:55 BP 111 / 50; Pulse 87; Resp 18; Pulse Ox 97% on R/A; Pain 8/10; lp1 04/27 23:00 Body Mass Index 37.12 (104.33 kg, 167.64 cm) aa1 ED Course: 04/27 22:33 Patient arrived in ED. es 23:00 Triage completed. aa1 23:00 Arm band placed on right wrist. Patient placed in an exam room, on a stretcher. aa1 23:09 Vinicio Allison PA is PHCP. cp 23:09 Pete Aguero MD is Attending Physician. cp 23:15 Patient has correct armband on for positive identification. lp1 23:21 Corinne Friend RN is Primary Nurse. lp1 23:45 Inserted saline lock: 22 gauge in left forearm, using aseptic technique. lp1 04/28 00:47 No provider procedures requiring assistance completed. lp1 01:02 Head C Spine Cap Wo Con In Process Unspecified. EDMS 02:18 IV discontinued, No redness/swelling at site. Pressure dressing applied. lp1 Administered Medications: 04/27 23:45 Drug: fentaNYL (PF) 25 mcg Route: IVP; Site: left forearm; lp1 04/28 00:54 Follow up: Response: No adverse reaction; No change in condition lp1 Outcome: 02:03 Discharge ordered by . cp 02:18 Discharged to home ambulatory, with friend. lp1 02:18 Condition: good 02:18 Discharge instructions given to patient, Instructed on discharge instructions, follow up and referral plans. Demonstrated understanding of instructions, follow-up care. 02:18 Patient left the ED. lp1 Signatures: Dispatcher [employer] EDKeysha Roper RN RN aa1 Madison Morales Laura, RN RN lp1 Vinicio Allison PA PA cp
--- NOTE | 2019-04-28 02:04 | EDPHYS ---
Physician Documentation [facility] Name: Latoya Rodriges Age: 58 yrs Sex: Female : 1960 Arrival Date: 04/27/2019 Time: 22:33 Bed 15 Private MD: ED Physician Pete Aguero HPI: 04/27 23:30 This 58 yrs old Female presents to ER via Ambulatory with complaints of fall. cp 23:30 Details of fall: The patient fell from an upright position, while standing, and struck cp wood antonio. Onset: The symptoms/episode began/occurred last night. Associated injuries: The patient sustained injury to the head, pain, neck injury, pain, upper back injury, pain, injury to the low back, pain. Severity of symptoms: in the emergency department the symptoms are actually worse, moderately. Historical: - Allergies: 23:10 Codeine; aa1 23:10 Morphine; aa1 23:10 GABAPENTIN; aa1 23:10 Sulfa (Sulfonamide Antibiotics); aa1 - PMHx: 23:10 Diabetes - NIDDM; Fibromyalgia; Degenerative disc disease; PAD; RLS; neuropathy; Sleep aa1 Apnea; COPD; bursitis; - PSHx: 23:10 ; Hysterectomy; Hernia repair; ankle sx; aa1 - Immunization history:: Adult Immunizations up to date. - Social history:: Smoking status: Patient uses tobacco products, smokes one-half pack cigarettes per day. - Ebola Screening: : No symptoms or risks identified at this time. ROS: 23:35 Constitutional: Negative for body aches, chills, fever, poor PO intake. cp 23:35 Eyes: Negative for injury, pain, redness, and discharge. cp 23:35 ENT: Negative for drainage from ear(s), ear pain, sore throat, difficulty swallowing, difficulty handling secretions. 23:35 Neck: Positive for pain with movement, pain at rest. 23:35 Cardiovascular: Negative for chest pain. 23:35 Respiratory: Negative for cough, shortness of breath, wheezing. 23:35 Back: Positive for pain at rest, pain with movement. 23:35 MS/extremity: Negative for injury or acute deformity. 23:35 Neuro: Positive for headache, Negative for altered mental status, dizziness, weakness. 23:35 All other systems are negative. Exam: 23:45 Constitutional: The patient appears in no acute distress, alert, awake, cp non-diaphoretic, non-toxic, well developed, well nourished, in obvious pain, uncomfortable. 23:45 Eyes: Pupils equal round and reactive to light, extra-ocular motions intact. Lids and cp lashes normal. Conjunctiva and sclera are non-icteric and not injected. Cornea within normal limits. Periorbital areas with no swelling, redness, or edema. 23:45 Head/face: Noted is tenderness, of the left side of the back of head and right side of the back of head. 23:45 ENT: External ear(s): are unremarkable, Ear canal(s): are normal, clear, TM's: bulging, is not appreciated, bilaterally, dullness, bilaterally, erythema, is not appreciated, bilaterally, Nose: is normal, Mouth: Lips: moist, Oral mucosa: pink and intact, moist, Posterior pharynx: Airway: no evidence of obstruction, patent. 23:45 Neck: External neck: tenderness, of the left mid cervical area, right mid cervical area, left trapezius, lower cervical area and right trapezius, ROM/movement: pain, that is mild, with any movement, limited range of motion, is not appreciated, nuchal rigidity, is not appreciated. 23:45 Chest/axilla: Inspection: normal, Palpation: is normal, no crepitus, no tenderness. 23:45 Cardiovascular: Rate: normal, Rhythm: regular, Edema: ankle edema, that is very mild, JVD: is not appreciated. 23:45 Respiratory: the patient does not display signs of respiratory distress, Respirations: normal, no use of accessory muscles, no retractions, no splinting, no tachypnea, labored breathing, is not present, Breath sounds: are clear throughout, no decreased breath sounds, no stridor, no wheezing. 23:45 Abdomen/GI: Inspection: abdomen appears normal, Bowel sounds: active, all quadrants, Palpation: abdomen is soft and non-tender, in all quadrants. 23:45 Back: pain, that is moderate, of the thoracic area and lumbar area, ROM is painful, with all movement. Vital Signs: 23:00 BP 133 / 51; Pulse 93; Resp 20; Temp 98.2; Pulse Ox 98% on R/A; Weight 104.33 kg; aa1 Height 5 ft. 6 in. (167.64 cm); Pain 10/10; 04/28 00:00 BP 119 / 55; Pulse 94; Resp 18; Pulse Ox 97% on R/A; lp1 00:55 BP 111 / 50; Pulse 87; Resp 18; Pulse Ox 97% on R/A; Pain 8/10; lp1 04/27 23:00 Body Mass Index 37.12 (104.33 kg, 167.64 cm) aa1 MDM: 04/27 02:02 Data reviewed: vital signs, nurses notes, radiologic studies, CT scan, and as a result, cp I will discharge patient. 23:09 Patient medically screened. cp 04/28 00:00 Differential diagnosis: closed head injury, contusion, fracture, multiple trauma. cp 02:00 Counseling: I had a detailed discussion with the patient and/or guardian regarding: the cp historical points, exam findings, and any diagnostic results supporting the discharge/admit diagnosis, radiology results, to return to the emergency department if symptoms worsen or persist or if there are any questions or concerns that arise at home. 02:00 Response to treatment: the patient's symptoms have markedly improved after treatment, cp and as a result, I will discharge patient. ED course: VSS. CT negative for acute trauma. 04/27 23:58 Order name: Head C Spine Cap Wo Con [facility] 04/27 23:21 Order name: IV; Complete Time: 00:12 cp Administered Medications: 04/27 23:45 Drug: fentaNYL (PF) 25 mcg Route: IVP; Site: left forearm; 1 04/28 00:54 Follow up: Response: No adverse reaction; No change in condition lp1 Disposition: 02:39 Co-signature as Attending Physician, Pete Aguero MD. [email or web address] Disposition: 04/28/19 02:03 Discharged to Home. Impression: Low back pain - from fall, Headache - from fall, Neck pain from fall. - Condition is Stable. - Discharge Instructions: Fall Prevention in the Home, Musculoskeletal Pain. - Medication Reconciliation Form, Thank You Letter, Antibiotic Education, Prescription Opioid Use form. - Follow up: Private Physician; When: 2 - 3 days; Reason: Recheck today's complaints. - Problem is new. - Symptoms have improved. Signatures: [facility] Keysha Morley RN RN aa1 Pete Aguero MD MD pkl Corinne Friend RN RN lp1 Vinicio Allison PA PA cp Corrections: (The following items were deleted from the chart) 04/27 23:59 23:21 Head C Spine MPR Wo Con+CT.RAD.BRZ ordered. EDMN EDMN 04/28 00:28 04/27 23:22 Thoracic Spine WO Cont+CT.RAD.BRZ ordered. EDMN EDMN 04/28 00:28 04/27 23:22 Spine Lumbar Wo Con+CT.RAD.BRZ ordered. EDMN EDMN 04/28 00:28 04/27 23:22 Pelvis Wo Cont+CT.RAD.BRZ ordered. EDMN EDMN 04/28 02:18 02:03 04/28/2019 02:03 Discharged to Home. Impression: Low back pain - from fall; lp1 Headache - from fall; Neck pain from fall. Condition is Stable. Forms are Medication Reconciliation Form, Thank You Letter, Antibiotic Education, Prescription Opioid Use. Follow up: Private Physician; When: 2 - 3 days; Reason: Recheck today's complaints. Problem is new. Symptoms have improved. cp
--- NOTE | 2019-04-30 12:53 | RAD REPORT ---
EXAM DESCRIPTION: CT Head Without Intravenous Contrast CT Cervical Spine Without Intravenous Contrast CLINICAL HISTORY: The patient is 58 years old and is Female; fell hit back of head TECHNIQUE: Axial computed tomography images of the head/brain and cervical spine without intravenous contrast. Sagittal and coronal reformatted images were created and reviewed. This CT exam was pe rformed using one or more of the following dose reduction techniques: automated exposure control, a djustment of the mA and/or kV according to patient size, and/or use of iterative reconstruction techn ique. COMPARISON: No relevant prior studies available. FINDINGS: BRAIN: Unremarkable. No hemorrhage. No significant white matter disease. No edema. VENTRICLES: Unremarkable. No ventriculomegaly. SKULL: No acute fracture. SINUSES: Unremarkable as visualized. No acute sinusitis. MASTOID AIR CELLS: Unremarkable as visualized. No mastoid effusion. VERTEBRAE: The vertebral body heights and alignment are maintained. No acute fracture. DISCS/SPINAL CANAL/NEURAL FORAMINA: Mild multilevel intervertebral disc space narrowing with ant erior and posterior osteophyte formation is present most prominent at C5-C7. Minimal neural foraminal narrowing and canal narrowing is noted specifically at these levels. SOFT TISSUES: The soft tissues are normal. IMPRESSION: 1. No acute intracranial findings. 2. No fracture or malalignment of the cervical spine. EXAM DESCRIPTION: CT Chest Without Intravenous Contrast CT Abdomen and Pelvis Without Intravenous Contrast CLINICAL HISTORY: The patient is 58 years old and is Female; fell hit back of head TECHNIQUE: Axial computed tomography images of the chest, abdomen and pelvis without intravenous con trast. Sagittal and coronal reformatted images were created and reviewed. This CT exam was perfor med using one or more of the following dose reduction techniques: automated exposure control, adjus tment of the mA and/or kV according to patient size, and/or use of iterative reconstruction technique . COMPARISON: No relevant prior studies available. FINDINGS: CHEST: LUNGS: The lungs are clear of focal opacity, mass, or consolidation. PLEURAL SPACE: Unremarkable. No significant effusion. No pneumothorax. HEART: No cardiomegaly. No pericardial effusion. ABDOMEN: LIVER: Homogeneous without focal mass. GALLBLADDER AND BILE DUCTS: A few calcified gallstones are present within the gallbladder. The g allbladder is decompressed. PANCREAS: Unremarkable. No ductal dilation. SPLEEN: Unremarkable. ADRENALS: Unremarkable. No mass. KIDNEYS AND URETERS: No obstructing stones. No hydronephrosis. STOMACH AND BOWEL: The stomach is distended with food contents. The small bowel is normal in rebekah iber. A moderate amount stool is present throughout colon. Scattered colonic diverticula are noted wi thout surrounding inflammation. There is no bowel obstruction. PELVIS: APPENDIX: The appendix is normal in caliber without surrounding inflammation. BLADDER: The bladder is moderately distended. No stones. REPRODUCTIVE: The patient is status post hysterectomy. CHEST, ABDOMEN and PELVIS: INTRAPERITONEAL SPACE: Unremarkable. No significant fluid collection. No free air. BONES/JOINTS: Multilevel degenerative change of the spine is present. No acute fracture of the v isualized axial and appendicular skeleton is noted. SOFT TISSUES: The soft tissues are normal. VASCULATURE: A left iliac vein stent is present. Atherosclerosis of the vasculature is noted. No aortic aneurysm. LYMPH NODES: Unremarkable. No enlarged lymph nodes. IMPRESSION: No evidence of solid organ injury or traumatic bony findings on this noncontrasted CT of the chest, abdomen, and pelvis. Electronically signed by: Rina Haque MD 04/28/2019 1:20 AM CDT Due to temporary technical issues with the PACS/Fluency reporting system, reports are being signed by the in house radiologist as a courtesy to ensure prompt reporting. The interpreting radiologist is f ully responsible for the content of the report.
== END 2019-04-28 02:18 | disposition home or self-care (01) ==
LOC: ER 22:28
DX: M54.5 Low back pain (principal); R51 Headache; M54.2 Cervicalgia; W18.30XA Fall on same level, unspecified, initial encounter; E11.9 Type 2 diabetes mellitus without complications; M79.7 Fibromyalgia; J44.9 Chronic obstructive pulmonary disease, unspecified; F17.210 Nicotine dependence, cigarettes, uncomplicated; Z88.5 Allergy status to narcotic agent; Z88.2 Allergy status to sulfonamides
CPT/HCPCS: 70450; 71250; 72125; 96374; 99283; J3010